=== PATIENT | male | born 1965 | race Caucasian/White ===

== ENCOUNTER 2018-01-01 01:11 | Emergency (ER) | payer OTHER ==
[~2018-01-01] VITALS: Ht 177.8 cm; Wt 77.1 kg
[~2018-01-01 01:11] MED LIST: AMOXICILLIN500 M3 PO; BACTRIM 400-801 EACH PO; BACTRIM DS TAB1 EACH PO; CELECOXIB200 M1 PO; MELOXICAM7.5 M1 PO; METHYLPREDNISOLO4 M2 PO; TRAMADOL HCL50 M1 PO
--- NOTE | 2018-01-01 01:19 | ED GENERAL ADULT ---
History of Present Illness General Chief Complaint: General Adult Stated Complaint: +NVD,BACK PAIN Source: patient, family Exam Limitations: no limitations Vital Signs & Intake/Output Vital Signs & Intake/Output Vital Signs Date Time Temp Pulse Resp B/P B/P Pulse O2 O2 Flow FiO2 Mean Ox Delivery Rate 01/01 0633 98.4 103 18 97/50 96 Room Air 01/01 0504 98.2 01/01 0504 98.2 107 18 97/56 97 Room Air 01/01 0321 96 Room Air 01/01 0319 101.0 01/01 0318 101.0 105 20 103/57 96 Room Air 01/01 0122 98.4 108 20 90/59 97 Room Air Allergies Coded Allergies: No Known Allergies (07/22/15) Reconcile Medications Amoxicillin 500 MG TABLET 1 TAB PO TID cellulitis/abscess Celecoxib 200 MG CAPSULE 1 CAP PO DAILY PAIN (Reported) Methylprednisolone 4 MG TAB.DS.PK 1 TAB PO DAILY STEROID (Reported) Sulfamethoxazole/Trimethoprim (Bactrim Ds Tablet) 800 MG-160 MG TABLET 1 TAB PO BID abscess/cellulitis Triage Nurses Notes Reviewed? yes Onset: Abrupt Duration: hour(s): Timing: recent history Injury Environment: home Severity: moderate Modifying Factors: Worsens With: other (vomiting). Associated Symptoms: vomiting HPI: 52 yo gentleman presents with episode of rigors. He shares that he ate a hotdog tonight and then started vomiting and experiencing chills. He notes no fever, diarrhea, chest pain, dyspnea. He is otherwise well. Past History Travel History Traveled to [place] past 21 day No Medical History Any Pertinent Medical History? see below for history Neurological: NONE EENT: NONE Cardiovascular: NONE Respiratory: NONE Gastrointestinal: NONE Hepatic: NONE Renal: NONE Musculoskeletal: BACK SURGERY Psychiatric: NONE Endocrine: NONE Blood Disorders: NONE Cancer(s): NONE SPOT FACER/Reproductive: NONE Surgical History Surgical History: non-contributory Psychosocial History What is your primary language Khmer Family History Hx Contributory? No Review of Systems Review of Systems Constitutional: Reports: no symptoms. EENTM: Reports: no symptoms. Respiratory: Reports: no symptoms. Cardiovascular: Reports: no symptoms. GI: Reports: no symptoms. Genitourinary: Reports: no symptoms. Musculoskeletal: Reports: no symptoms. Skin: Reports: no symptoms. Neurological/Psychological: Reports: no symptoms. Hematologic/Endocrine: Reports: no symptoms. Immunologic/Allergic: Reports: no symptoms. All Other Systems: Reviewed and Negative Physical Exam Physical Exam General Appearance: well developed/nourished, mild distress, moderate distress Head: atraumatic, normal appearance Eyes: Bilateral: normal appearance. Ears, Nose, Throat: normal pharynx, normal ENT inspection Neck: normal inspection, supple, full range of motion Respiratory: normal breath sounds, chest non-tender, no respiratory distress, quiet respiration Cardiovascular: regular rate/rhythm Gastrointestinal: normal bowel sounds, soft, non-tender Back: normal inspection Extremities: normal inspection, normal capillary refill, normal range of motion Neurologic/Psych: no motor/sensory deficits, awake, alert, oriented x 3 Reflexes: 1+: bicep (R), bicep (L), knee (R), knee (L). Skin: intact, normal color, warm/dry Core Measures ACS in differential dx? No CVA/TIA Diagnosis: No Sepsis Present: No Sepsis Focused Exam Completed? No Progress Differential Diagnoses I considered the following diagnoses in my evaluation of the patient: food poisoning, dehydration, viral syndrome, etoh intoxication vs other. Plan of Care: Orders Procedure Date/time Status LACTIC ACID 01/01 545 Complete BASIC METABOLIC PANEL 01/01 545 Complete URINALYSIS 01/02 124 Complete TROPONIN LEVEL 01/01 118 Complete LIPASE 01/01 118 Complete LACTIC ACID 01/01 118 Complete HEPATIC FUNCTION PANEL 01/01 118 Complete ETHANOL 01/01 118 Complete CBC WITHOUT DIFFERENTIAL 01/01 118 Complete BASIC METABOLIC PANEL 01/01 118 Complete AMYLASE 01/01 118 Complete EKG 01/01 118 Active Laboratory Tests 01/01/18 0517: Anion Gap 10, Estimated GFR > 60, BUN/Creatinine Ratio 3.8 L, Glucose 77, Lactic Acid 3.5 H, Calcium 7.2 L 01/01/18 0245: Anion Gap 17 H, Estimated GFR > 60, BUN/Creatinine Ratio 3.3 L, Glucose 77, Lactic Acid 7.5 H, Calcium 8.6, Total Bilirubin 1.2, Direct Bilirubin 0.5 H, AST 104 H, ALT 47, Alkaline Phosphatase 158 H, Troponin I < 0.01, Total Protein 6.7, Albumin 3.0 L, Amylase 59, Lipase 129, CBC w Diff MAN DIFF ORDERED , RBC 4.00 L, MCV 100.7 H, MCH 34.6 H, MCHC 34.3, RDW 14.9 H, MPV 9.1, Gran % 88.8 H, Lymphocytes % 9.7 L, Monocytes % 1.1 L, Eosinophils % 0.1, Basophils % 0.3, Absolute Granulocytes 5.2, Segmented Neutrophils 88 H, Band Neutrophils 1, Absolute Lymphocytes 0.6 L, Lymphocytes 11 L, Absolute Monocytes 0.1, Absolute Eosinophils 0, Absolute Basophils 0, Platelet Estimate ADEQUATE, Polychromasia 1+, Ovalocytes FEW, Fld Total RBCs Counted 100, Serum Alcohol 22.0 01/01/18 0220: Urinalysis LIGHT H, Urine Color YEL, Urine Clarity HAZY H, Urine pH 5.5, Ur Specific Pheba 1.020, Urine Protein TRACE H, Urine Ketones NEG, Urine Nitrite NEG, Urine Bilirubin NEG, Urine Urobilinogen 1.0, Ur Leukocyte Esterase NEG, Ur Microscopic SEDIMENT EXAMINED, Urine RBC 1-3, Urine WBC 1-3 H, Urine Bacteria FEW H, Urine Mucus MOD H, Urine Hemoglobin TRACE-INTACT H, Urine Glucose NEG 01/01/18 0124: Serum Alcohol Cancelled Diagnostic Imaging: Viewed by Me: Radiology Read, CT Scan. Discussed w/RAD: Radiology Read, CT Scan. Radiology Impression: PATIENT: LETICIA GARCIA PRESENT AGE: 52 PATIENT ACCOUNT NO: [id number] : 66 LOCATION: [facility] ORDERING PHYSICIAN: Joey Williamson MD SERVICE DATE: 01/01/18 EXAM TYPE: RAD - XRY-PORTABLE CHEST XRAY EXAMINATION: CHEST 1 VIEW CLINICAL INFORMATION: Dyspnea. COMPARISON: None. TECHNIQUE: An AP view of the chest is provided. FINDINGS: The cardiac silhouette is not enlarged. The mediastinal and hilar contours are unremarkable. There are neither pleural effusions nor pneumothoraces. There are no consolidations. The osseous structures are unremarkable. IMPRESSION: No evidence for acute disease. DICTATED BY: Orlando Kapoor MD DATE/TIME DICTATED:01/01/18212 DANCE COACH:BLADE DATE/TIME TRANSCRIBED:01/01/18212 CONFIDENTIAL, DO NOT COPY WITHOUT APPROPRIATE AUTHORIZATION. <Electronically signed in Other Vendor System> SIGNED BY: Orlando Kapoor MD 01/01/18215 CXR Impression: PATIENT: LETICIA GARCIA PRESENT AGE: 52 PATIENT ACCOUNT NO: [id number] : 67 LOCATION: [facility] ORDERING PHYSICIAN: Joey Williamson MD SERVICE DATE: 01/01/18 EXAM TYPE: RAD - XRY-PORTABLE CHEST XRAY EXAMINATION: CHEST 1 VIEW CLINICAL INFORMATION: Dyspnea. COMPARISON: None. TECHNIQUE: An AP view of the chest is provided. FINDINGS: The cardiac silhouette is not enlarged. The mediastinal and hilar contours are unremarkable. There are neither pleural effusions nor pneumothoraces. There are no consolidations. The osseous structures are unremarkable. IMPRESSION: No evidence for acute disease. DICTATED BY: Orlando Kapoor MD DATE/TIME DICTATED:01/01/18212 DANCE COACH:BLADE DATE/TIME TRANSCRIBED:01/01/18212 CONFIDENTIAL, DO NOT COPY WITHOUT APPROPRIATE AUTHORIZATION. <Electronically signed in Other Vendor System> SIGNED BY: Orlando Kapoor MD 01/01/18215 Initial ED EKG: sinus tach Departure Departure Disposition: HOME OR SELF CARE Condition: Stable Clinical Impression Primary Impression: Abdominal discomfort Secondary Impressions: Chills, Fever, Lactic acidosis Referrals: Shelbi Montes De Oca MD (PCP/Family) Departure Forms: Customer Survey General Discharge Information Comments 01/01/18, 4:00... lactic acid of 7.5 noted... pt reports feeling better... I suggested that he needs admission for iv fluids and further care... He declines this, asking to stay longer in the ED.... will give iv fluids and recheck lactic acid. 01/01/18, 630am... pt feeling better... lactate 3.5... scans/labs otherwise benign. he would like to go home, is in no discomfort, no abdominal pain, dyspnea, chest pain.... I strongly suggested that he be admitted to the hospital. He insists upon going home.... he will continue oral fluid hydration. he will return if his symptoms recur. Critical Care Note Critical Care Note Critical Care Time: non-applicable
--- NOTE | 2018-01-01 02:16 | RADIOLOGY REPORT ---
EXAMINATION: CHEST 1 VIEW CLINICAL INFORMATION: Dyspnea. COMPARISON: None. TECHNIQUE: An AP view of the chest is provided. FINDINGS: The cardiac silhouette is not enlarged. The mediastinal and hilar contours are unremarkable. There are neither pleural effusions nor pneumothoraces. There are no consolidations. The osseous structures are unremarkable. IMPRESSION: No evidence for acute disease.
--- NOTE | 2018-01-01 02:20 | CT SCAN REPORT ---
EXAMINATION: CT ABDOMEN AND PELVIS WITHOUT CONTRAST CLINICAL INFORMATION: Abdominal pain and vomiting. COMPARISON: None. TECHNIQUE: Contiguous axial thin section helical images of the abdomen and pelvis were performed without oral or IV contrast. The data set was reformatted in the coronal and sagittal planes and reviewed on an independent workstation. DLP: 367 mGy-cm. FINDINGS: There is patchy nonspecific groundglass opacification within the left lower and medial segment right middle lobes. The visualized lung bases are otherwise clear. The visualized portions of the heart are unremarkable. The liver is of normal size and attenuation without focal lesions nor intrahepatic biliary ductal dilation. A normal gallbladder is identified. There is no wall thickening or discernible pericholecystic fluid. The spleen, pancreas, adrenal glands are unremarkable. Both kidneys are of normal size and attenuation without hydronephrosis or nephrolithiasis. There is mild bilateral perinephric stranding. There is no abdominal free fluid. There is neither mesenteric nor retroperitoneal lymphadenopathy. There are manifestations of sigmoid diverticulosis without evidence of diverticulitis; otherwise, unremarkable unopacified loops of small and large bowel are identified. There is no pelvic free fluid. The urinary bladder is unremarkable. There is neither pelvic nor inguinal lymphadenopathy. There is a fat-containing left inguinal hernia. Bone windows: Neither sclerotic nor lytic bone lesions are identified. IMPRESSION: Mild manifestations of sigmoid diverticulosis without evidence of diverticulitis. Mild nonspecific patchy groundglass opacification within the visualized lung bases as stated above.
[2018-01-01 03:03] LABS: ABSOLUTE BASOPHIL COUNT 0 /CUMM (0.0-0.2); ABSOLUTE EOSINOPHIL COUNT 0 /CUMM (0.0-0.7); ABSOLUTE GRANULOCYTE CT 5.2 /CUMM (1.4-6.5); ABSOLUTE LYMPH COUNT 0.6 /CUMM (1.2-3.4); ABSOLUTE MONOCYTE COUNT 0.1 /CUMM (0.10-0.60); BASOPHIL % 0.3 % (0.0-2.0); EOSINOPHIL % 0.1 % (0-5); GRANULOCYTE % 88.8 % (42.2-75.2); HEMATOCRIT 40.3 % (42-52); MEAN CORPUSCULAR HGB 34.6 PG (27.0-31.0); MEAN CORPUSCULAR HGB CONC 34.3 G/DL (33.0-37.0); MEAN CORPUSCULAR VOLUME 100.7 FL (80.0-94.0); MEAN PLATELET VOLUME 9.1 FL (7.4-10.4); PLATELET COUNT 115 /CUMM (130-400); RBC DISTRIBUTION WIDTH 14.9 % (11.5-14.5); WHITE BLOOD CELL COUNT 5.9 /CUMM (4.8-10.8)
[2018-01-01 06:33] VITALS: BP 97/50
== END 2018-01-01 06:39 ==
LOC: ERH 01:11
PROVIDERS: Pediatrics
DX: E87.2 Acidosis (principal); R10.9 Unspecified abdominal pain; R50.9 Fever, unspecified
CPT/HCPCS: 71045; 74176; 81001; 93005; 93010; 96361; 96365; 96375; G0480; J0131; J2405